=== PATIENT | female | born 1955 | race African-American/Black ===

== ENCOUNTER 2019-01-12 08:58 | Day surgery (SDC) | payer MEDICAID ==
[~2019-01-12] VITALS: Ht 170.2 cm; Wt 102.1 kg
[~2019-01-12 08:58] MED LIST: ATOR10TA69 PO; LACTATED RINGERS 1,000 ML IV SCH
[2019-01-12] MEDS ORDERED: PHENYLEPHRINE HCL 10% OPHTH DROPS 5ML RIGHTEYE ONE (09:00)
[2019-01-12] MEDS ORDERED: CYCLOPENTOLATE HCL 1% OPHTH DROPS 2ML RIGHTEYE ONE (09:00)
[2019-01-12] MEDS ORDERED: TROPICAMIDE 1% OPHTH DROPS 15ML RIGHTEYE ONE (09:00)
[2019-01-12] MEDS ORDERED: BALANCED SALT IRRIG SOLN COMB1 500ML OP ONE (09:00)
[2019-01-12 09:51] LABS: HEMATOCRIT 43.6 % (36.0-48.0); HEMOGLOBIN 14.5 g/dL (12.0-16.0); MEAN CORPUSCULAR HEMOGLOBIN 29.8 pg (28.0-32.0); MEAN CORPUSCULAR VOLUME 89.4 fL (81.0-99.0); PLATELET 321 x1000/uL (130-400); RED BLOOD CELL COUNT 4.87 mill/uL (4.2-5.4); RED CELL DISTRIBUTION WIDTH 13.7 % (11.6-14.6)
[2019-01-12] MEDS ORDERED: HYALURONATE SODIUM 14 MG/ML 0.85ML SYRINGE IO ONE (10:03)
[2019-01-12] MEDS ORDERED: FENTANYL CITRATE/PF 50MCG/ML 2ML VIAL ONE ×2 (12:06→12:49)
[2019-01-12] MEDS ORDERED: DIPHENHYDRAMINE 50MG/ML VIAL ONE (12:07)
[2019-01-12] MEDS ORDERED: MIDAZOLAM HCL 2 MG/2 ML VIAL ONE (12:07)
[2019-01-12] MEDS ORDERED: PROPOFOL 200MG/20ML VIAL IV ONE (12:11)
[2019-01-12] MEDS ORDERED: LIDOCAINE HCL/PF 1% 10 MG/ML 5ML VIAL ONE (12:11)
[2019-01-12] MEDS ORDERED: HYDROMORPHONE HCL/PF 2MG/ML CPJ IV PRN (13:15)
[2019-01-12] MEDS ORDERED: DIPH25CA83 PO (13:40)
[2019-01-12] MEDS ORDERED: GEMF600T5 PO (13:40)
[2019-01-12] MEDS ORDERED: CHOL100062 PO (13:40)
[2019-01-12] MEDS ORDERED: IBUP-2029 PO (13:40)
[2019-01-12] MEDS ORDERED: PHENYLEPHRINE HCL 2.5% OPHTH DROPS 2ML ONE (16:26)
[2019-01-12] MEDS ORDERED: ACETYLCHOLINE CHLORIDE INTRAOCULAR SOLUTION 1:100 ELECTROLYTE DILUENT IO ONE (16:26)
[2019-01-12] MEDS ORDERED: PREDNISOLONE ACETATE 1% OPHTH DROPS 1ML ONE (16:26)
[2019-01-12] MEDS ORDERED: TETRACAINE 0.5% OPHTH DROPS 4ML ONE (16:26)
[2019-01-12] MEDS ORDERED: LIDOCAINE HCL/PF 2% 20 MG/ML 10ML VIAL ONE (16:26)
[2019-01-12] MEDS ORDERED: BALANCED SALT IRRIG SOLN 15ML ONE (16:26)
[2019-01-12] MEDS ORDERED: CIPROFLOXACIN 0.3% OPHTH SOLN 2.5ML ONE (16:26)
== END 2019-01-12 14:30 | disposition home or self-care (01) ==
LOC: OR 08:58
PROVIDERS: ATTEND Ophthalmology
DX: H25.012 Cortical age-related cataract, left eye (principal); E78.5 Hyperlipidemia, unspecified; E66.9 Obesity, unspecified; Z98.891 History of uterine scar from previous surgery; Z98.890 Other specified postprocedural states; Z79.899 Other long term (current) drug therapy; Z68.35 Body mass index [BMI] 35.0-35.9, adult
CPT/HCPCS: 36415; 66982; 85027; J1200; J2250; J2704; J3010; J3490; V2632